=== PATIENT | female | born 1985 | race Caucasian/White ===

== ENCOUNTER 2019-07-05 18:06 | Emergency (ER) | payer OTHER, SELFPAY ==
--- NOTE | ~2019-07-05 | XR_ITS ---
XR ankle LT 2V DATE: 07/05/2019 18:22 INDICATION: Patient fell one day ago. Lateral pain and swelling. TECHNIQUE: 2 views COMPARISON: None FINDINGS: No fracture or dislocation of the ankle or disruption of the ankle mortise. IMPRESSION: Negative Reviewed, dictated and finalized at location A. IMPRESSION: Negative
[2019-07-05 18:09] VITALS: BP 149/97; PULSE 128; RESP 19; TEMP 36.5; O2SAT 97
--- NOTE | 2019-07-05 18:18 | ED.LOWEXIN ---
HPI - Extremity Injury (Lower) General Chief Complaint: Extremity Injury, Lower Stated Complaint: L ANKLE PAIN S/P FALL Time Seen by Provider: 07/05/19 18:12 History of Present Illness HPI Narrative: Patient presents with left ankle pain. Last night she slipped in the mud. She has been using ice and ibuprofen. She has a history of ankle sprains. And the knee that gives out on. She does not have an orthopedic surgeon. Not been sick, she is on control pill for family-planning, and has been staying at home for the last 40 days with her 3 children. She does not smoke she occasionally drinks and does not do drugs Related Data Home Medications Medication Instructions Recorded Confirmed buspirone mg 03/13/19 duloxetine mg PO 03/13/19 norethindrone-e.estradiol-iron tablet 03/13/19 [Blisovi 24 Fe] Allergies Allergy/AdvReac Type Severity Reaction Status Date / Time No Known Allergies Allergy Verified 07/05/19 18:13 Review of Systems Review of Systems: Narrative: CONSTITUTIONAL: Denies fever, chills, or sweats. EYES: Denies visual changes, redness, or discharge. ENT: Denies rhinorrhea, congestion, sore throat, or otalgia. CARDIOVASCULAR: Denies chest pain, palpitations, or edema. RESPIRATORY: Denies cough or dyspnea. GASTROINTESTINAL: Denies abdominal pain, nausea, vomiting, or diarrhea. GENITOURINARY: Denies dysuria or hematuria. SKIN: Denies rash or itching. MUSCULOSKELETAL: Denies back pain. NEUROLOGIC: Denies headache, numbness, or weakness. PSYCHIATRIC: Denies anxiety or depression. PMFSH Surgical History Surgical History (Updated 07/05/19 @ 18:21 by Luci Brice MD) History of D&C Social History Social History (Updated 07/05/19 @ 18:21 by Luci Brice MD) Smoking status: Never smoker Alcohol intake: current Gender identity (if verbalized by the patient): Female Exam Narrative: Exam Narrative: GENERAL: Well-appearing, well-nourished, and in no acute distress.Overweight HEAD: Normocephalic, atraumatic. EYES: PERRLA and EOMI. ENT: Nares clear, no rhinorrhea or epistaxis. Mucous membranes moist. NECK: Supple. CHEST: Clear to auscultation. No respiratory distress. HEART: Regular rate and rhythm. No murmur heard. Normal peripheral pulses. ABDOMEN: Soft, nontender, nondistended, normal active bowel sounds. EXTREMITIES: Normal range of motion. Swelling and tenderness on the lateral left ankle. SKIN: Warm, dry, no rash. NEURO: No focal deficits. Alert and oriented x3. PSYCH: Normal mood and affect. Course Vital Signs Vital signs: Vital Signs Temperature 97.7 F 07/05/19 18:09 Pulse Rate 128 H 07/05/19 18:09 Respiratory Rate 19 07/05/19 18:09 Blood Pressure 149/97 H 07/05/19 18:09 Pulse Oximetry 97 07/05/19 18:09 Temperature 97.7 F 07/05/19 18:09 Pulse Rate 128 H 07/05/19 18:09 Respiratory Rate 19 07/05/19 18:09 Blood Pressure 149/97 H 07/05/19 18:09 Pulse Oximetry 97 07/05/19 18:09 MDM - Extremity Injury (Lower) Imaging Data Radiologist's impression: ITS Impressions Ankle X-Ray 07/05/19 18:31 IMPRESSION: Negative Discharge Plan Discharge Clinical Impression: Ankle sprain Qualifiers: Encounter type: initial encounter Involved ligament of ankle: unspecified ligament Laterality: left Qualified Code(s): S93.402A - Sprain of unspecified ligament of left ankle, initial encounter Patient Disposition: Home, Self-Care Condition: Stable Instructions: Ankle Sprain (ED) Prescriptions: No Action buspirone 5 mg tablet RF: 0 duloxetine 60 mg capsule,delayed release(DR/EC) PO RF: 0 norethindrone-e.estradiol-iron [Blisovi 24 Fe] 1 mg-20 mcg (24)/75 mg (4) tablet RF: 0 Follow-up/Referrals: Adrien Ferraro MD [Physician] - (Call for appointment, if it doesn't heal up in 6 weeks) Leslie,DULCE Elena [Primary Care Provider] - Time of Disposition: 19:03
== END 2019-07-05 19:20 | disposition home or self-care (01) ==
PROVIDERS: Emergency Provider Emergency Medicine; PCP Physician Assistant
DX: S93.402A Sprain of unspecified ligament of left ankle, initial encounter (principal); W01.0XXA Fall on same level from slipping, tripping and stumbling without subsequent striking against object, initial encounter
CPT/HCPCS: 73600; 99283

== ENCOUNTER 2020-02-29 10:29 | Emergency (ER) | payer OTHER, SELFPAY ==
[2020-02-29 10:40] VITALS: BP 138/91; PULSE 112; RESP 16; TEMP 37.1; O2SAT 99
--- NOTE | 2020-02-29 11:04 | ED.URI ---
HPI - URI/Sore Throat General Chief Complaint: Upper Respiratory Infection Stated Complaint: Cough Time Seen by Provider: 02/29/20 11:28 Source: patient and RN notes reviewed Mode of arrival: ambulatory Limitations: no limitations History of Present Illness HPI Narrative: 34-year-old female presents with concern for 1 month history of cough, chest congestion, productive cough, shortness of breath with excursion, sinus congestion, drainage. Reports a month ago when symptoms started she took Augmentin for sinus infection which had little to no improvement. Reports she has been taking [id number] cold and flu medicines with no relief. She denies any known sick contacts, denies any fever, chills, sweats, loss of sense of taste or smell, body aches. MD elicited complaint: cough and nasal congestion Related Data Home Medications Medication Instructions Recorded Confirmed duloxetine 60 mg PO DAILY 03/13/19 02/29/20 norethindrone-e.estradiol-iron 20 tablet PO DAILY 03/13/19 02/29/20 [Blisovi 24 Fe] Allergies Allergy/AdvReac Type Severity Reaction Status Date / Time No Known Allergies Allergy Verified 02/29/20 10:54 Review of Systems Review of Systems: Narrative: CONSTITUTIONAL: Denies malaise, chills, sweats, or fever. EYES: Denies visual changes, redness, or discharge. ENT: Reports rhinorrhea, congestion, sinus pain, otalgia. Denies sore throat. CARDIOVASCULAR: Denies chest pain, palpitations, or edema. RESPIRATORY: Reports cough, exertional dyspnea. GASTROINTESTINAL: Denies abdominal pain, nausea, vomiting, diarrhea SKIN: Denies rash or itching. MUSCULOSKELETAL: Denies myalgia. NEUROLOGIC: Denies headache. All systems reviewed & are unremarkable except as noted in HPI and below PMFSH Surgical History Surgical History (Updated 07/05/19 @ 18:21 by Luci Brice MD) History of D&C Social History Social History (Updated 07/05/19 @ 18:21 by Luci Brice MD) Smoking status: Never smoker Alcohol intake: current Gender identity (if verbalized by the patient): Female Comments At time of signature, agree with nursing past medical, surgical, social and family history. There is no relevant family history pertinent to the presenting complaint Exam Narrative: Exam Narrative: GENERAL: Well-appearing, well-nourished, and in no acute distress. HEAD: Normocephalic EYES: PERRLA, conjunctivae clear ENT: Nares clear, turbinates edematous and erythematous, sinus tenderness. Mucous membranes moist. TM pearly dorman with dull light reflex bilaterally; no tragal tenderness. Oropharynx not erythematous without lesions. Tonsils not enlarged and without exudate, no drooling, no hoarseness, no trismus, uvula midline. NECK: Supple. No lymphadenopathy CHEST: Clear to auscultation, breath sounds equal. No wheezing, rhonchi, rales, or stridor. No respiratory distress, speaks in full sentences. HEART: Regular rate and rhythm. No murmur heard. SKIN: Warm, dry, no rash. NEURO: Alert and oriented x3. PSYCH: Normal mood and affect Course Course Emergency Course: Patient is aware of diagnosis, understands and agrees to treatment plan. Anticipatory guidance given. Patient agrees to follow-up as directed and is aware of reasons to seek care at the emergency department. Portions of this record may have been created with voice recognition software Vital Signs Vital signs: Vital Signs Temperature 98.8 F 02/29/20 10:40 Pulse Rate 112 H 02/29/20 10:40 Respiratory Rate 16 02/29/20 10:40 Blood Pressure 138/91 H 02/29/20 10:40 Pulse Oximetry 99 02/29/20 10:40 Temperature 98.8 F 02/29/20 10:40 Pulse Rate 112 H 02/29/20 10:40 Respiratory Rate 16 02/29/20 10:40 Blood Pressure 138/91 H 02/29/20 10:40 Pulse Oximetry 99 02/29/20 10:40 Reviewed. Patient has been instructed to follow up with her primary care provider within the next week regarding her elevated blood pressure today. MDM - URI/Sore Throat M
== END 2020-02-29 11:36 | disposition home or self-care (01) ==
PROVIDERS: Emergency Provider Nurse Practitioner; PCP Physician Assistant
DX: J40 Bronchitis, not specified as acute or chronic (principal)
CPT/HCPCS: 99213; G0463

== ENCOUNTER 2020-05-21 08:17 | Outpatient (CLI) | payer OTHER, SELFPAY | END 2020-05-21 08:18 | disposition home or self-care (01) | LOC: ANHCOVIDVC 08:17 | PROVIDERS: PCP Physician Assistant | DX: Z23 Encounter for immunization (principal) | CPT/HCPCS: 0001A; 91300 ==

== ENCOUNTER 2020-06-24 14:16 | Outpatient (CLI) | payer OTHER, SELFPAY | END 2020-06-24 14:17 | disposition home or self-care (01) | LOC: ANHCOVIDVC 14:16 | PROVIDERS: PCP Physician Assistant | DX: Z23 Encounter for immunization (principal) | CPT/HCPCS: 0002A; 91300 ==

== ENCOUNTER 2022-01-14 18:10 | Emergency (ER) | payer OTHER, SELFPAY ==
--- NOTE | 2022-01-14 18:25 | ED.NECK ---
HPI - Neck Pain/Injury General Chief Complaint: Neck Pain/Injury Stated Complaint: rt shoulder/neck pain Time Seen by Provider: 01/14/22 19:00 Source: patient and RN notes reviewed Mode of arrival: ambulatory Limitations: no limitations History of Present Illness HPI Narrative: 36-year-old female presents with concern for right shoulder spasming. She reports pain between the right side of the neck and the right shoulder. Reports that started when she woke up this morning. Reports it is worsened throughout the day. Reports she tried ibuprofen without relief. She denies any injury or trauma. Denies any redness, bruising, swelling, warmth. Reports trouble turning her neck to the right MD complaint: neck pain Related Data Home Medications Medication Instructions Recorded Confirmed escitalopram oxalate 20 mg tablet 20 mg PO DAILY 01/14/22 01/14/22 nebivolol 5 mg tablet 5 mg PO DAILY 01/14/22 01/14/22 norethindrone 1 mg-ethinyl 1 tablet PO DAILY 01/14/22 01/14/22 estradiol 20 mcg (24)-iron 75 mg (4) tablet (Blisovi 24 Fe) Allergies Allergy/AdvReac Type Severity Reaction Status Date / Time No Known Allergies Allergy Verified 01/14/22 18:22 Review of Systems Review of Systems: CONSTITUTIONAL: Denies malaise, chills, sweats, or fever. SKIN: Denies rash or itching, open skin, laceration, abrasion, redness, warmth, swelling. MUSCULOSKELETAL: Reports pain between the right-sided neck and shoulder NEUROLOGIC: Denies numbness, weakness All systems reviewed & are unremarkable except as noted in HPI and below PMFSH Surgical History Surgical History (Updated 07/05/19 @ 18:21 by Luci Brice MD) History of D&C Social History Social History (Updated 07/05/19 @ 18:21 by Luci Brice MD) Smoking status: Never smoker Alcohol intake: current Gender identity (if verbalized by the patient): Female Comments At time of signature, agree with nursing past medical, surgical, social and family history. There is no relevant family history pertinent to the presenting complaint Exam Narrative: GENERAL: Well-appearing, well-nourished, and in no acute distress. HEAD: Normocephalic, atraumatic. EYES: PERRLA and EOMI. NECK: Supple. No lymphadenopathy. CHEST: Clear to auscultation. No respiratory distress. HEART: Regular rate and rhythm. Distal pulses palpable and equal, cap refill <3 seconds MUSCULOSKELETAL: Normal strength in all extremities; 5/5 strength equal strength in bilateral upper and lower extremity. Normal sensation in dermatomal distributions with sensitivity to light touch and pain. No midline neck tenderness to palpation. No paraspinal tenderness. Transfers from sitting to standing. Limited range of motion turning head to the right SKIN: Warm, dry, no rash. No ecchymosis, erythema, open wounds to back. NEURO: No focal deficits. Alert and oriented x3. Reflexes intact. Normal gait. PSYCH: Normal mood and affect Course Course Emergency Course: Patient is aware of diagnosis, understands and agrees to treatment plan. Anticipatory guidance given. Patient agrees to follow-up as directed and is aware of reasons to seek care at the emergency department. Portions of this record may have been created with voice recognition software Level of Care: Express Care Visit Vital Signs Vital signs: Vital Signs Temperature 98.1 F 01/14/22 18:44 Pulse Rate 84 01/14/22 18:44 Respiratory Rate 16 01/14/22 18:44 Blood Pressure 151/99 H 01/14/22 18:44 Pulse Oximetry 99 01/14/22 18:44 Oxygen Delivery Room Air 01/14/22 18:44 Temperature 98.1 F 01/14/22 18:44 Pulse Rate 84 01/14/22 18:44 Respiratory Rate 16 01/14/22 18:44 Blood Pressure 151/99 H 01/14/22 18:44 Pulse Oximetry 99 01/14/22 18:44 Oxygen Delivery Room Air 01/14/22 18:44 Reviewed. MDM - Neck Pain/Injury MDM Narrative Medical decision making narrative: Patients pain is consistent with musculoskeletal etiology. No si
[2022-01-14 18:44] VITALS: BP 151/99; PULSE 84; RESP 16; TEMP 36.7; O2SAT 99
[2022-01-14] MEDS: KETOROLAC (*BKC) 60 MG/2 ML VIAL IM (19:34)
== END 2022-01-14 20:09 | disposition home or self-care (01) ==
PROVIDERS: Emergency Provider Nurse Practitioner; PCP Physician Assistant
DX: M43.6 Torticollis (principal); F41.9 Anxiety disorder, unspecified; F32.A Depression, unspecified
CPT/HCPCS: 96372; 99213; G0463; J1885

== ENCOUNTER 2022-03-03 10:41 | Emergency (ER) | payer OTHER, SELFPAY ==
--- NOTE | ~2022-03-03 | XR_ITS ---
EXAMINATION: XR chest 2V DATE: 03/03/2022 12:18 INDICATION: Midline chest pain and tachycardia TECHNIQUE: PA and lateral views of the chest were obtained. COMPARISON: Chest radiograph dated 11/29/17 FINDINGS: The lungs remain clear with no focal airspace opacities, pulmonary edema, pleural effusion or pneumot horax. The cardiomediastinal silhouette is normal. Mild thoracic spondylosis. IMPRESSION: 1. No acute cardiopulmonary disease. Reviewed, dictated and finalized at location A. BILITATION PSYCHOLOGIST
--- NOTE | 2022-03-03 10:42 | ECG_ITS ---
Measurements Intervals [place] Rate: 117 P: 66 AL: 133 QRS: -26 QRSD: 88 T: 47 QT: 305 QTc: 426 Interpretive Statements SINUS TACHYCARDIA POSSIBLE LEFT ATRIAL ENLARGEMENT [-0.1mV P WAVE IN V1/V2] LOW QRS VOLTAGE WITH POOR R-WAVE PROGRESSION CONSIDER PREVIOUS INFERIOR MYOCARDIAL INFARCTION , ABNORMAL ECG NO PREVIOUS ECG AVAILABLE FOR COMPARISON Electronically Signed On 03-03-2022 20:02:36 CERTIFIED NURSING ATTENDANT by Bart Eng M.D.
[2022-03-03 10:53] VITALS: BP 152/93; PULSE 116; RESP 16; TEMP 36.8; O2SAT 99
[2022-03-03 11:30] VITALS: BP 159/89; PULSE 66; PULSE 71; RESP 14; O2SAT 97
[2022-03-03 12:01] LABS: Basophils Percent Auto 0.4 % (0.2-1.2); Eosinophils Absolute Auto 0.1 K/mm3 (0-0.3); Eosinophils Percent Auto 1.5 % (0-4.4); Hematocrit 40.5 % (37.0-47.0); Hemoglobin 13.4 g/dL (12.0-15.0); Immature Granulocyte Absolute 0.02 K/mm3 (0.00-0.031); Immature Granulocyte Percent A 0.4 % (0-0.5); Lymphocytes Absolute Auto 1.47 K/mm3 (0.9-3.2); Lymphocytes Percent Auto 27.5 % (18.3-44.2); Mean Corpuscular HGB Conc 33.1 g/dl (32-36); Mean Corpuscular Hemoglobin 29.6 pg (26-34); Mean Corpuscular Volume 89.4 fl (80-100); Monocytes Absolute Auto 0.3 K/mm3 (0.1-0.6); Monocytes Percent Auto 5.6 % (2.6-8.5); Neutrophils Absolute Auto 3.5 K/mm3 (1.3-6.7); Neutrophils Percent Auto 64.6 % (45.5-73.1); Platelet Count Result 209 k/mm3 (150-375); Red Blood Count 4.53 M/mm3 (4.2-5.4); Red Cell Distribution Width 12.5 % (11.5-14.5); White Blood Count 5.3 K/mm3 (4.5-10.0)
--- NOTE | 2022-03-03 12:07 | ED.CHESTPAIN ---
HPI - Chest Pain General Chief Complaint: Chest Pain Stated Complaint: chest pain Time Seen by Provider: 03/03/22 12:00 Source: RN notes reviewed History of Present Illness HPI narrative: Patient presents emergency room from home for chest pain. Patient states that symptoms began last night. The pain is located over the left lower chest and upper abdomen and radiates around to the back the pain is described as sharp and stabbing. Patient states nothing makes the pain better or worse. She states that she does note some mild upper abdominal pain as well she denies any fevers or chills shortness of breath nausea vomiting diarrhea or any other symptoms. States she took of BuSpar for the symptoms feeling it might be anxiety related Related Data Home Medications Medication Instructions Recorded Confirmed escitalopram oxalate 20 mg tablet 20 mg PO DAILY 01/14/22 01/14/22 nebivolol 5 mg tablet 5 mg PO DAILY 01/14/22 01/14/22 norethindrone 1 mg-ethinyl 1 tablet PO DAILY 01/14/22 01/14/22 estradiol 20 mcg (24)-iron 75 mg (4) tablet (Blisovi 24 Fe) Allergies Allergy/AdvReac Type Severity Reaction Status Date / Time No Known Allergies Allergy Verified 01/14/22 18:22 Review of Systems Review of Systems: Gen.: Denies fevers or chills ENT: Denies congestion Respiratory: Denies shortness of breath or cough CV: See HPI GI: Reports epigastric abdominal pain, denies nausea, emesis or diarrhea Musculoskeletal: Denies back pain or muscle pain Neuro: Denies numbness, tingling, weakness or focal weakness Skin: Denies rash Except as documented, all other systems reviewed and negative [facility] Past Medical History Medical History (Updated 03/03/22 @ 15:16 by Flako Miller DO) Anxiety Surgical History Surgical History (Updated 07/05/19 @ 18:21 by Luci Brice MD) History of D&C Social History Social History (Updated 03/03/22 @ 12:08 by Flako Miller DO) Tobacco type: e-cigarettes/vaping Alcohol intake: current Gender identity (if verbalized by the patient): Female Exam Narrative: APPEARANCE: No acute distress, nontoxic, resting in bed EYES: EOMI HEENT: Normocephalic, atraumatic, OMM RESPIRATORY: No respiratory distress Clear to auscultation bilaterally with no rhonchi wheezing or rales. CARDIOVASCULAR: Regular rate and rhythm without murmurs rubs or gallops. Chest: Tender to palpation just to the left of the sternum over ribs 7 and 8 with point tenderness present ABDOMINAL: Soft, nondistended, tender to palpation in epigastric and left upper quadrant no tenderness in right upper quadrant, right lower quadrant and left lower quadrant no rebound or guarding no rebound or guarding MUSCULOSKELETAl: Moves all extremities. No clubbing, cyanosis or edema. NEURO: Awake and alert. Following commands, speech normal, no focal deficits SKIN:: Warm, dry. No rashes lesions or abrasions PSYCHIATRIC: Normal affect/mood, Course Course Emergency Course: Patient states pain has resolved following GI cocktail Discussed with patient results of workup and diagnosis. Discussed need for follow-up with primary care, proper use of medication, and reasons to return to the emergency department. Patient understands and agrees to current treatment plan Vital Signs Vital signs: Vital Signs Temperature 98.3 F 03/03/22 10:53 Pulse Rate 116 H 03/03/22 10:53 Respiratory Rate 16 03/03/22 10:53 Blood Pressure 152/93 H 03/03/22 10:53 Pulse Oximetry 99 03/03/22 10:53 Oxygen Delivery Room Air 03/03/22 10:53 Temperature 98.3 F 03/03/22 10:53 Pulse Rate 64 03/03/22 12:59 Respiratory Rate 14 03/03/22 12:59 Blood Pressure 159/85 H 03/03/22 12:59 Pulse Oximetry 100 03/03/22 12:59 Oxygen Delivery Room Air 03/03/22 10:53 MDM - Chest Pain MDM Narrative Medical decision making narrative: Patient's EKGs and labs are without significant high risk changes. Cardiac risk factors reviewed. Patient
[2022-03-03 12:10] LABS: Alanine Aminotransferase 31 U/L (6-35); Albumin Level 4.5 g/dL (3.5-5.1); Alkaline Phosphatase 69 U/L (38-126); Anion Gap 6 mmol/L (8-16); Aspartate Amino Transferase 26 U/L (14-36); Bilirubin,Total 0.7 mg/dL (0.2-1.3); Blood Urea Nitrogen 11 mg/dL (7-17); Calcium 9.1 mg/dL (8.4-10.2); Carbon Dioxide 27 mmol/L (22-30); Chloride 106 mmol/L (98-107); Estimated CRCL calculation 100 ml/min; Estimated Glomerular Filt Rate > 60; Glucose 112 mg/dL (65-110); Lipase 85 U/L (23-300); Potassium 4.2 mmol/L (3.4-5.0); Sodium 139 mmol/L (137-145)
[2022-03-03 12:12] LABS: Partial Thromboplastin Time 23.3 SECONDS (22.3-36.8); Prothrombin Time 12.9 Seconds (11.1-14.7)
[2022-03-03 12:22] LABS: D Dimer 0.36 ug/mL (<0.48); Troponin I < 0.012 ng/mL (0.000-0.034)
[2022-03-03 12:59] VITALS: BP 159/85; PULSE 64; RESP 14; O2SAT 100
[2022-03-03 15:11] LABS: Troponin I < 0.012 ng/mL (0.000-0.034)
[2022-03-03 15:36] VITALS: BP 155/77; PULSE 66; RESP 18; O2SAT 100
== END 2022-03-03 15:37 | disposition home or self-care (01) ==
PROVIDERS: Emergency Medicine; Emergency Provider Emergency Medicine; PCP Physician Assistant
DX: R07.89 Other chest pain (principal); K21.9 Gastro-esophageal reflux disease without esophagitis; F41.9 Anxiety disorder, unspecified; F17.290 Nicotine dependence, other tobacco product, uncomplicated; R00.0 Tachycardia, unspecified; R94.31 Abnormal electrocardiogram [ECG] [EKG]
CPT/HCPCS: 36415; 71046; 80053; 83690; 84484; 85025; 85380; 85610; 85730; 93005; 99284; A9270

== ENCOUNTER → 2022-10-05 11:00 | Outpatient (CLI) | payer OTHER, SELFPAY ==
--- NOTE | ~2022-10-05 | XR_ITS ---
Left Shoulder Technique: AP and scapular Y views were obtained. Clinical History: Pain Findings: No fracture or dislocation is seen. Osseous alignment is anatomic. The glenohumeral and acr omioclavicular joint spaces are preserved. Soft tissues are unremarkable. Impression: Unremarkable left shoulder radiographs. Reviewed, dictated and finalized at [facility]. Impression: Unremarkable left shoulder radiographs.
== END ==
LOC: EXPCRAD 11:02
PROVIDERS: PCP Physician Assistant; Visit Provider Physician Assistant
DX: M25.512 Pain in left shoulder (principal)
CPT/HCPCS: 73030

== ENCOUNTER 2022-10-06 12:39 | Emergency (ER) | payer OTHER, SELFPAY ==
--- NOTE | ~2022-10-06 | XR_ITS ---
EXAMINATION: XR chest 2V 10/06/2022 14:09 INDICATION: Chest pressure. Assessment. Tachycardia. PROCEDURE: 2 view chest COMPARISON: 03/03/2022 FINDINGS: The lungs are clear. The cardiomediastinal silhouette is within normal limits. There are no pleural effusions. There is no pneumothorax suspected. IMPRESSION: 1: NO ACUTE CARDIOPULMONARY DISEASE. Reviewed, dictated and finalized at location A.
--- NOTE | ~2022-10-06 | CT_ITS ---
EXAMINATION: CTA chest PE protocol DATE: 10/06/2022 19:08 CDT INDICATION: Chest pain. Elevated d-dimer. TECHNIQUE: Computed tomographic angiography (CTA) of the chest was performed with 100 mL Omnipaque-35 0 intravenous contrast. The dose-length product was 917.03 mGy-cm. Maximum intensity projection 3D-re constructions of the aorta and other arteries were constructed by the technologist on a separate work station. Automated exposure control and iterative reconstruction technique were employed. COMPARISON: None. FINDINGS: Study is technically adequate without evidence for pulmonary embolism. No thoracic lymphade nopathy. Heart size normal. No significant pleural or pericardial effusion. The upper abdomen is unre markable. No endobronchial lesions. No pneumothorax. No focal airspace disease. Mild thoracic spondyl osis. IMPRESSION: 1. No acute cardiopulmonary disease. Reviewed, dictated and finalized at location A.
--- NOTE | 2022-10-06 12:40 | ECG_ITS ---
Measurements Intervals [place] Rate: 101 P: 42 [place]: 138 QRS: 1 QRSD: 86 T: 19 QT: 336 QTc: 436 Interpretive Statements SINUS TACHYCARDIA POSSIBLE LEFT ATRIAL ENLARGEMENT CONSIDER ANTERIOR INFARCT, AGE INDETERMINATE CONSIDER INFERIOR INFARCT, AGE INDETERMINATE ABNORMAL ECG COMPARED TO ECG 03/03/2022 10:47:21 NO SIGNIFICANT CHANGES Electronically Signed On 10-09-2022 11:18:58 CDT by Albert Kamara D.O.
[2022-10-06 12:48] VITALS: BP 146/91; PULSE 93; RESP 16; TEMP 36.4; O2SAT 98
[2022-10-06 13:17] LABS: Basophils Percent Auto 0.4 % (0.2-1.2); Eosinophils Absolute Auto 0.1 K/mm3 (0-0.3); Eosinophils Percent Auto 2.4 % (0-4.4); Hematocrit 40.6 % (37.0-47.0); Hemoglobin 13.6 g/dL (12.0-15.0); Immature Granulocyte Absolute 0.02 K/mm3 (0.00-0.031); Immature Granulocyte Percent A 0.4 % (0-0.5); Lymphocytes Absolute Auto 1.58 K/mm3 (0.9-3.2); Lymphocytes Percent Auto 31.3 % (18.3-44.2); Mean Corpuscular HGB Conc 33.5 g/dl (32-36); Mean Corpuscular Hemoglobin 29.5 pg (26-34); Mean Corpuscular Volume 88.1 fl (80-100); Monocytes Absolute Auto 0.3 K/mm3 (0.1-0.6); Monocytes Percent Auto 5.6 % (2.6-8.5); Neutrophils Percent Auto 59.9 % (45.5-73.1); Platelet Count Result 179 k/mm3 (150-375); Red Blood Count 4.61 M/mm3 (4.2-5.4)
[2022-10-06 13:26] LABS: Alanine Aminotransferase 23 U/L (6-35); Albumin Level 4.2 g/dL (3.5-5.1); Alkaline Phosphatase 63 U/L (38-126); Anion Gap 12 mmol/L (8-16); Aspartate Amino Transferase 21 U/L (14-36); Bilirubin,Total 0.7 mg/dL (0.2-1.3); Blood Urea Nitrogen 9 mg/dL (7-17); Calcium 9.4 mg/dL (8.4-10.2); Carbon Dioxide 20 mmol/L (22-30); Chloride 106 mmol/L (98-107); Estimated CRCL calculation 100 ml/min; Estimated Glomerular Filt Rate > 60; Glucose 102 mg/dL (65-110); Lipase 112 U/L (23-300); Sodium 138 mmol/L (137-145)
[2022-10-06 13:28] LABS: Partial Thromboplastin Time 23.8 SECONDS (22.3-36.8); Prothrombin Time 13.6 Seconds (11.1-14.7)
[2022-10-06 13:37] LABS: Troponin I < 0.012 ng/mL (0.000-0.034)
[2022-10-06 15:53] VITALS: PULSE 82
[2022-10-06 16:23] VITALS: PULSE 69; RESP 18; O2SAT 98
--- NOTE | 2022-10-06 16:24 | ED.CHESTPAIN ---
HPI - Chest Pain General Chief Complaint: Chest Pain Stated Complaint: chest pressure Time Seen by Provider: 10/06/22 16:23 Source: patient Mode of arrival: ambulatory Limitations: no limitations History of Present Illness HPI narrative: 37 years old white female, had palpitations today while shopping at the grocery store. Patient went home, and at rest around 11 AM and started having tightness, pressure feeling across the chest. Radiating under left breast and around to left lower ribs posteriorly. She denies any recent physical activity, fever, chills, nausea, vomiting, shortness of breath. Patient denies aggravating or relieving factors, possible extra stress lately. History of hypertension, does not smoke or uses drugs, drinks occasionally. No family history of coronary artery disease in her mom side Related Data Home Medications Medication Instructions Recorded Confirmed escitalopram oxalate 20 mg tablet 20 mg PO DAILY 01/14/22 01/14/22 nebivolol 5 mg tablet 5 mg PO DAILY 01/14/22 01/14/22 norethindrone 1 mg-ethinyl 1 tablet PO DAILY 01/14/22 01/14/22 estradiol 20 mcg (24)-iron 75 mg (4) tablet (Blisovi 24 Fe) Allergies Allergy/AdvReac Type Severity Reaction Status Date / Time Penicillins Allergy Itching Verified 10/06/22 15:41 Review of Systems Review of Systems: All systems reviewed & are unremarkable except as noted in HPI and below PMFSH Past Medical History Medical History Anxiety Surgical History Surgical History (Updated 07/05/19 @ 18:21 by Luci Brice MD) History of D&C Social History Social History (Updated 03/03/22 @ 12:08 by Flako Miller DO) Tobacco type: e-cigarettes/vaping Alcohol intake: current Gender identity (if verbalized by the patient): Female Exam Narrative: General appearance: Well-developed, well-nourished Skin: Normal color Head: Normocephalic, nontraumatic Eyes: Clear conjunctiva ENT: Oropharynx normal, ears normal, nose normal Neck: Supple, nontender Chest and respiratory: Airway patent, no respiratory distress, no accessory muscle use Heart: Regular rate/rhythm Abdomen: Soft, nontender, no organomegaly, quiet bowel sounds Vascular: Normal peripheral pulses, normal capillary refill. 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, no gross motor deficit Course Reevaluation(s) Reevaluation #1: Feeling anxious, restless Date: 10/06/22 Time: 18:24 Vital Signs Vital signs: Vital Signs Temperature 36.4 C 10/06/22 12:48 Pulse Rate 93 10/06/22 12:48 Respiratory Rate 16 10/06/22 12:48 Blood Pressure 146/91 H 10/06/22 12:48 Pulse Oximetry 98 10/06/22 12:48 Oxygen Delivery Room Air 10/06/22 12:48 Temperature 36.4 C 10/06/22 12:48 Pulse Rate 73 10/06/22 19:12 Respiratory Rate 14 10/06/22 19:12 Blood Pressure 125/78 10/06/22 19:12 Pulse Oximetry 98 10/06/22 19:12 Oxygen Delivery Room Air 10/06/22 12:48 MDM - Chest Pain MDM Narrative Medical decision making narrative: Patient presents with palpitation earlier today, subsequently developed tightness and pressure type feeling across the chest going on the left breast and radiating to the lower ribs posteriorly. Physical examination was insignificant, Differential diagnoses include musculoskeletal, coronary artery disease,, pneumonia, shingles, Work-up today include CBC, CMP, troponin, D-dimer, EKG, chest x-ray, lipase, PT PTT, Results showed elevated D-dimer of 0.62, normal troponin x3, chest x-ray showed no acute cardiopulmonary, EKG showed sinus
[2022-10-06 16:27] LABS: Troponin I < 0.012 ng/mL (0.000-0.034)
[2022-10-06 18:16] LABS: D Dimer 0.62 ug/mL (<0.48)
[2022-10-06] MEDS: LORazepam (*CRX) 0.5 MG TABLET 1 MG PO (18:51)
[2022-10-06 18:53] VITALS: PULSE 78
[2022-10-06] MEDS: METOPROLOL TARTRATE 50 MG TAB 25 MG PO (18:53)
[2022-10-06 19:07] LABS: Troponin I < 0.012 ng/mL (0.000-0.034)
[2022-10-06 19:12] VITALS: BP 125/78; PULSE 73; RESP 14; O2SAT 98
[2022-10-06 20:20] VITALS: BP 137/78; PULSE 75; RESP 22; O2SAT 98
== END 2022-10-06 20:25 | disposition home or self-care (01) ==
PROVIDERS: Preventive Medicine Aerospace Medicine; Emergency Provider Emergency Medicine; PCP Physician Assistant
DX: R07.89 Other chest pain (principal); I10 Essential (primary) hypertension; F41.9 Anxiety disorder, unspecified; Z87.891 Personal history of nicotine dependence; R00.0 Tachycardia, unspecified; R94.31 Abnormal electrocardiogram [ECG] [EKG]
CPT/HCPCS: 36415; 71046; 71275; 80053; 83690; 84484; 85025; 85380; 85610; 85730; 93005; 99284; A9270; Q9967

== ENCOUNTER 2022-10-09 13:00 | Emergency (ER) | payer OTHER, SELFPAY ==
--- NOTE | ~2022-10-09 | XR_ITS ---
EXAMINATION: XR chest 2V DATE: 10/09/2022 14:08 INDICATION: Shortness of breath and chest tightness TECHNIQUE: PA and lateral views of the chest were obtained. COMPARISON: Chest radiograph and CT dated 09/28/2022 FINDINGS: The lungs remain clear with no focal airspace opacities, pulmonary edema, pleural effusion or pneumot horax. The cardiomediastinal silhouette is normal. Mild thoracic levocurvature with mild spondylosis. IMPRESSION: 1. No acute cardiopulmonary disease. Reviewed, dictated and finalized at location B.
--- NOTE | 2022-10-09 13:02 | ECG_ITS ---
Measurements Intervals [place] Rate: 75 P: 48 [place]: 140 QRS: -1 QRSD: 82 T: 15 QT: 363 QTc: 406 Interpretive Statements SINUS RHYTHM BORDERLINE R WAVE PROGRESSION, ANTERIOR LEADS BORDERLINE ECG COMPARED TO ECG 10/06/2022 12:45:18 SINUS RHYTHM NOW PRESENT Electronically Signed On 10-09-2022 16:34:24 CDT by Albert Kamara D.O.
[2022-10-09 13:10] VITALS: BP 141/82; PULSE 75; RESP 16; TEMP 36.4; O2SAT 100
[2022-10-09 13:44] LABS: Basophils Percent Auto 0.4 % (0.2-1.2); Eosinophils Absolute Auto 0.1 K/mm3 (0-0.3); Eosinophils Percent Auto 1.7 % (0-4.4); Hematocrit 39.8 % (37.0-47.0); Hemoglobin 13.3 g/dL (12.0-15.0); Immature Granulocyte Absolute 0.01 K/mm3 (0.00-0.031); Immature Granulocyte Percent A 0.2 % (0-0.5); Lymphocytes Absolute Auto 1.59 K/mm3 (0.9-3.2); Lymphocytes Percent Auto 33.1 % (18.3-44.2); Mean Corpuscular HGB Conc 33.4 g/dl (32-36); Mean Corpuscular Hemoglobin 29.2 pg (26-34); Mean Corpuscular Volume 87.3 fl (80-100); Mean Platelet Volume 9.9 fl (7.4-10.4); Monocytes Absolute Auto 0.3 K/mm3 (0.1-0.6); Monocytes Percent Auto 5.8 % (2.6-8.5); Neutrophils Absolute Auto 2.8 K/mm3 (1.3-6.7); Neutrophils Percent Auto 58.8 % (45.5-73.1); Platelet Count Result 213 k/mm3 (150-375); Red Blood Count 4.56 M/mm3 (4.2-5.4); White Blood Count 4.8 K/mm3 (4.5-10.0)
[2022-10-09 13:56] LABS: Alanine Aminotransferase 27 U/L (6-35); Albumin Level 4.3 g/dL (3.5-5.1); Alkaline Phosphatase 63 U/L (38-126); Anion Gap 6 mmol/L (8-16); Aspartate Amino Transferase 22 U/L (14-36); Bilirubin,Total 0.7 mg/dL (0.2-1.3); Blood Urea Nitrogen 9 mg/dL (7-17); Calcium 9.8 mg/dL (8.4-10.2); Carbon Dioxide 20 mmol/L (22-30); Chloride 108 mmol/L (98-107); Estimated CRCL calculation 98 ml/min; Estimated Glomerular Filt Rate > 60; Glucose 101 mg/dL (65-110); Lipase 110 U/L (23-300); Potassium 3.9 mmol/L (3.4-5.0); Sodium 134 mmol/L (137-145)
[2022-10-09 13:58] LABS: Prothrombin Time 13.4 Seconds (11.1-14.7)
[2022-10-09 14:13] LABS: Troponin I < 0.012 ng/mL (0.000-0.034)
[2022-10-09 16:23] VITALS: BP 140/82; PULSE 61; RESP 18; TEMP 36.3; O2SAT 98
[2022-10-09 17:01] LABS: Troponin I < 0.012 ng/mL (0.000-0.034)
--- NOTE | 2022-10-09 17:23 | ED.GENADULT ---
HPI - General Adult General Chief complaint: Arrhythmia/Palpitations Stated complaint: HEART RACING, TIGHT CHEST Time Seen by Provider: 10/09/22 16:36 History of Present Illness HPI narrative: Patient is a 37-year-old female who presents to the ER with central chest tightness. Began earlier this morning. It occurred after she dropped her child off headache in her garden orientation. She did feel slightly stressed at the time. Patient was seen several days ago for chest pain as well. At that time she was having some shoulder and neck pain. She cannot describe any alleviating factors at this time for chest discomfort. She has no fevers or chills or sweats. No personal history of coronary disease nor family history of heart disease at a young age. Patient was given a cardiology referral. Related Data Home Medications Medication Instructions Recorded Confirmed escitalopram oxalate 20 mg tablet 20 mg PO DAILY 01/14/22 01/14/22 nebivolol 5 mg tablet 5 mg PO DAILY 01/14/22 01/14/22 norethindrone 1 mg-ethinyl 1 tablet PO DAILY 01/14/22 01/14/22 estradiol 20 mcg (24)-iron 75 mg (4) tablet (Blisovi 24 Fe) Allergies Allergy/AdvReac Type Severity Reaction Status Date / Time Penicillins Allergy Itching Verified 10/09/22 13:01 Review of Systems Review of Systems: All systems reviewed & are unremarkable except as noted in HPI and below Constitutional: Constitutional: Denies chills, Denies fatigue and Denies fever(s) ENT: Denies nasal congestion and Denies sore throat Cardiovascular: Cardiovascular: Reports chest pain, Reports rapid heart rate and Reports radiating jaw, neck or arm pain Respiratory: Respiratory: Denies cough and Denies dyspnea Gastrointestinal: Gastrointestinal: Denies abdominal pain, Denies nausea and Denies vomiting Psychiatric: Psychiatric: Reports anxiety PMFSH Past Medical History Medical History Anxiety Surgical History Surgical History (Updated 07/05/19 @ 18:21 by Luci Brice MD) History of D&C Social History Social History (Updated 03/03/22 @ 12:08 by Flako Miller DO) Tobacco type: e-cigarettes/vaping Alcohol intake: current Gender identity (if verbalized by the patient): Female Exam Narrative: GENERAL: Well-appearing, well-nourished, and in no acute distress. HEAD: Normocephalic, atraumatic. EYES: PERRL and EOMI. ENT: Mucous membranes moist. CHEST: Clear to auscultation. No respiratory distress. HEART: Regular rate and rhythm. Normal peripheral pulses. ABDOMEN: Soft, nontender, nondistended. EXTREMITIES: Normal range of motion. No edema. SKIN: Warm, dry, no rash. NEURO: Alert and oriented x3. PSYCH: Normal mood and affect. Course Course Emergency Course: Patient resting comfortably. I discussed her lab work as well as her EKG and imaging with her. Discussed that she has a heart score of 1 is felt appropriate for discharge home for outpatient work-up. Patient verbalized understanding of this and feels comfortable with plan. Vital Signs Vital signs: Vital Signs Temperature 97.5 F L 10/09/22 13:10 Pulse Rate 75 10/09/22 13:10 Respiratory Rate 16 10/09/22 13:10 Blood Pressure 141/82 H 10/09/22 13:10 Pulse Oximetry 100 10/09/22 13:10 Oxygen Delivery Room Air 10/09/22 13:10 Temperature 97.3 F L 10/09/22 16:23 Pulse Rate 61 10/09/22 16:23 Respiratory Rate 18 10/09/22 16:23 Blood Pressure 140/82 10/09/22 16:23 Pulse Oximetry 98 10/09/22 16:23 Oxygen Delivery Room Air 10/09/22 13:10 Medical Decision Making Vital Signs Vital Signs: Vital Signs Temperature 97.5 F L 10/09/22 13:10 Pulse Rate 75 10/09/22 13:10 Respiratory Rate 16 10/09/22 13:10 Blood Pressure 141/82 H 10/09/22 13:10 Pulse Oximetry 100 10/09/22 13:10 Oxygen Delivery Room Air 10/09/22 13:10 Temperature 97.3 F L 10/09/22 16:23 Pulse Rate 61 10/09/22
== END 2022-10-09 18:09 | disposition home or self-care (01) ==
PROVIDERS: Emergency Provider Emergency Medicine; PCP Physician Assistant
DX: R07.89 Other chest pain (principal); F41.9 Anxiety disorder, unspecified; F17.290 Nicotine dependence, other tobacco product, uncomplicated; R94.31 Abnormal electrocardiogram [ECG] [EKG]
CPT/HCPCS: 36415; 71046; 80053; 83690; 84484; 85025; 85610; 85730; 93005; 99284

== ENCOUNTER → 2022-12-29 09:25 | Outpatient (CLI) | payer OTHER, SELFPAY ==
--- NOTE | ~2022-12-29 | XR_ITS ---
EXAMINATION: XR abdomen/kub 1V INDICATION: Left groin pain TECHNIQUE: Supine view of the abdomen is obtained. COMPARISON: None FINDINGS: Left pelvic calcifications likely represent less. One measuring 3 mm could be located in th e distal left ureter. The bowel gas pattern is normal. The visualized osseous structures are unremark able. IMPRESSION: 1. Possible stone of the distal left ureter. Recommend correlation with urinalysis. Consider stone pr otocol CT. Reviewed, dictated and finalized at location F. IMPRESSION: 1. Possible stone of the distal left ureter. Recommend correlation with urinaly sis. Consider stone protocol CT.
== END ==
PROVIDERS: PCP Physician Assistant; Visit Provider Physician Assistant
DX: R10.32 Left lower quadrant pain (principal)
CPT/HCPCS: 74018

== ENCOUNTER → 2023-01-05 11:23 | Outpatient (CLI) | payer OTHER, SELFPAY ==
--- NOTE | ~2023-01-05 | CT_ITS ---
EXAMINATION: CT abdomen pelvis wo con DATE: 01/05/2023 11:47 INDICATION: Acute left flank pain TECHNIQUE: Computed tomography (CT) of the abdomen and pelvis was performed without intravenous contr ast. The dose-length product was 1143.35 mGy-cm. Automated exposure control and iterative reconstruct ion technique were employed. COMPARISON: None. FINDINGS: Lung bases are unremarkable. Heart size normal. No significant pleural or pericardial effus ion. No significant vascular abnormality. Mildly increased number of mesenteric lymph nodes, likely r eactive. The liver, spleen, pancreas, adrenal glands and kidneys are unremarkable. No renal/ureteral stones or hydronephrosis. Bladder is unremarkable. Nonobstructive bowel gas pattern. No evidence for diverticulitis. No free air or free fluid. Small fat-containing umbilical hernia. No acute osseous ab normality. IMPRESSION: 1. No acute abdominal abnormality. Reviewed, dictated and finalized at location B.
== END ==
PROVIDERS: PCP Physician Assistant; Visit Provider Physician Assistant
DX: R10.9 Unspecified abdominal pain (principal)
CPT/HCPCS: 74176

== ENCOUNTER 2023-03-28 08:05 | Outpatient (CLI) | payer OTHER, SELFPAY ==
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
== END 2023-03-28 08:06 ==
LOC: GOSHIMG 08:06
PROVIDERS: PCP Physician Assistant; Visit Provider Physician Assistant
DX: G44.82 Headache associated with sexual activity (principal)
CPT/HCPCS: 70450

== ENCOUNTER 2023-05-01 09:32 | Outpatient (CLI) | payer OTHER, SELFPAY ==
--- NOTE | ~2023-05-01 | MR_ITS ---
MRA HEAD History: Headache Technique: 3D time of flight MRA of the head is performed. Findings: The right and left distal vertebral arteries and the basilar and posterior cerebral arterie s are normal. Right and left distal internal carotid arteries and anterior and middle cerebral arteri es are normal. There is no aneurysm, stenosis, or occlusion. Impression: No occlusion, stenosis, or aneurysm. Reviewed, dictated and finalized at location . E OPERATOR Impression: No occlusion, stenosis, or aneurysm.
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
== END 2023-05-01 09:33 ==
PROVIDERS: PCP Physician Assistant; Visit Provider Physician Assistant
DX: G44.82 Headache associated with sexual activity (principal)
CPT/HCPCS: 70544; 70549; A9577

== ENCOUNTER 2023-09-18 22:04 | Emergency (ER) | payer OTHER, SELFPAY ==
[2023-09-18 22:08] VITALS: BP 158/100; PULSE 97; RESP 15; TEMP 36.3; O2SAT 100
[2023-09-18] MEDS: ONDANSETRON HCL ODT 4 MG TABLET PO (23:03)
[2023-09-18] MEDS: ACETAMINOPHEN 500 MG TABLET 1000 MG PO (23:03)
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
== END 2023-09-18 23:10 | disposition home or self-care (01) ==
PROVIDERS: Emergency Provider Emergency Medicine; PCP Physician Assistant
DX: S06.0X0A Concussion without loss of consciousness, initial encounter (principal); F41.9 Anxiety disorder, unspecified; F17.290 Nicotine dependence, other tobacco product, uncomplicated; Z79.899 Other long term (current) drug therapy; W21.05XA Struck by basketball, initial encounter
CPT/HCPCS: 99283; A9270